=== PATIENT | female | born 1940 | race Caucasian/White ===

== ENCOUNTER 2017-07-29 11:45 | Emergency (ER) | payer MEDICARE, BC | END 2017-07-29 15:33 | disposition home or self-care (01) | LOC: FTE 11:45 | DX: M25.551 Pain in right hip (principal); I10 Essential (primary) hypertension; Z79.82 Long term (current) use of aspirin; Z87.891 Personal history of nicotine dependence | CPT/HCPCS: 73520; 99284-25 ==